=== PATIENT | female | born 1980 | race Caucasian/White ===

== ENCOUNTER 2016-10-06 18:12 | Inpatient (IN) | payer BC ==
--- NOTE | ~2016-10-06 | PA ---
Unit #: [id number] #: [id number] Patient: AFIA PACHECO [id number] [facility] [address] [place] [address] [id number] I MR#: [id number] NAME: AFIA PACHECO. ROOM: P178 Age: 36 Sex: F Admission Date: 10/06/2016 : 1980 Date of Assessment: 10/07/2016 Attending Physician: Esther Ortega M.D. Admitting Physician: Esther Ortega M.D. Primary Care Physician: Irina Dudley M.D. PSYCHIATRIC ASSESSMENT DATE OF SERVICE 10/07/2016. IDENTIFYING DATA Ms. Pacheco is a 36-year-old single white female who is a resident of [place], [place] and was self-referred to the hospital on a voluntary basis. CHIEF COMPLAINT "I have been having urge to use drugs and to hurt myself." HISTORY OF PRESENT ILLNESS Ms. Pacheco is a 36-year-old white female who was brought to the hospital reporting that she still has been having the urge to use the drugs and hurt herself and that she has had urges more and more. 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 She reports that she drank on her job and one day she did not go back on 08/26/2016. She no longer has a job and she lives with her parents and stated that she is scared to lose her parents and does report increasing depression, anxiety, irritability, restlessness, feelings of hopelessness and helplessness, and suicidal ideation. SUBSTANCE ABUSE HISTORY The patient has extensive history of substance abuse and dependence including alcohol, cannabis, cocaine, acid, opioids, and amphetamines, and currently she has been drinking 1-1/2 pint of rum a day and has been smoking 3 blunts of cannabis a day and has been using an 8 ball of crack cocaine a day and has been using and opioids and methamphetamine on regular basis as well. PAST PSYCHIATRIC HISTORY The patient has had history of multiple inpatient and outpatient chemical dependency treatment including being at [facility], [facility], and review of the medical records indicate that she has been diagnosed and treated for bipolar disorder and has been on combination of psychotropic medications including Abilify, Seroquel, Celexa, Lamictal, Wellbutrin, but does not appear to be showing a therapeutic response to medications. PAST MEDICAL HISTORY Unit #: [id number] #: [id number] Patient: AFIA PACHECO Epilepsy. ALLERGIES Dilantin. PERSONAL AND SOCIAL HISTORY A 36-year-old white female who reports that she is single, unemployed, and lives at home with her parents and has fairly decent social support system. MENTAL STATUS EXAMINATION Young white female who was casually dressed with fair personal hygiene, appears to be in no acute distress or discomfort. She was awake and alert on interaction with intact orientation to time, place, and person. Her mood was anxious and depressed with a congruent affect. Her speech was slow and restricted in content. Her thought processes were disorganized with some looseness of associations and flight of ideas. She reports having suicidal ideations, but denies any homicidal ideations, and also denies any auditory or visual hallucinations. Her insight and judgment remain significantly impaired. DIAGNOSTIC IMPRESSION Psychiatric: Alcohol dependence, moderate and acute withdrawals; cannabis dependence, moderate; methamphetamine dependence, moderate; opioid dependence, moderate. Medical: Epilepsy. Stressors: Moderate psychosocial stressors. TREATMENT PLAN 1. The patient has presented with history of substance abuse and mood disorder, and has been decompensating and will need inpatient hospitalization for detoxification, and safety, and stabilization. We will start her on detox protocol. We will closely monitor for any worsening withdrawal symptoms. 2. Supportive therapy was provided to the patient. 3. Safe, structured, and nourishing environment will be provided. ESTIMATED LENGTH OF STAY 4 to 5 days. ABILITY TO HELP SELF Limited. WILLINGNESS TO HELP SELF The patient appears to be willing to help self. STRENGTHS 1. Communicative. 2. Cooperative. PROBLEMS 1. Chronic dysphoric symptoms. 2. Chronic chemical dependency. 3. Poor social support system. DISCHARGE CRITERIA This will be contingent upon the patient's ability to go through detox without having any significant withdrawal symptoms as well as her ability to stay safe to herself, particularly after discharge from the hospital. Unit #: [id number] #: [id number] Patient: AFIA PACHECO Dictated by... Calvin Dupree/tracy TD: 10/07/2016 08:02 JOB #: [id number] PSYCHIATRIC ASSESSMENT X Esther Ortega MD PSYCHIATRIC ASSESSMENT
--- NOTE | ~2016-10-06 | PN ---
Unit #: [id number] #: [id number] Patient: AFIA PACHECO [id number] [facility] [address] [place] [address] [id number] MR#: [id number] NAME: AFIA PACHECO. ROOM: P178 Age: 36 Sex: F Admission Date: 10/06/2016 : 1980 Attending Physician: Esther Ortega M.D. Admitting Physician: Esther Ortega M.D. Primary Care Physician: Calvin Ramirez PROGRESS NOTES DATE 10/08/2016 DISCUSSION Ms. Pacheco is a 36-year-old white female with substance abuse and mood disorder who was seen today and chart was reviewed and case was discussed with the staff. She has been anxious, withdrawn and rather seclusive to herself. Meanwhile, she has been cooperative with treatment recommendations as she has been taking the medications and tolerating them fairly well with no reported side effects. MENTAL STATUS EXAMINATION Young white female who was casually dressed with fair personal hygiene, appears to be in no acute distress or discomfort. She was awake and alert on interaction with intact orientation. Her mood was anxious with congruent affect. She denies any suicidal or homicidal ideations. Her insight and judgement remains slightly impaired. TREATMENT PLAN 1. We will continue her on her current medications and treatment protocol. We will monitor her response to medication and make further adjustments as needed. 2. We will continue to follow up. Dictated by... Calvin Dupree/kristi TD: 10/11/2016 02:19 JOB #: [id number] Unit #: [id number] #: [id number] Patient: AFIA PACHECO PROGRESS NOTES X Esther Ortega MD PROGRESS NOTE
--- NOTE | ~2016-10-06 | TN ---
Unit #: [id number] #: [id number] Patient: AFIA PACHECO [id number] [place] [address] [id number] MR#: [id number] NAME: AFIA PACHECO. ROOM: P178 Age: 36 Sex: F Admission Date: 10/06/2016 : 1980 Discharge Date: 10/10/2016 Attending Physician: Esther Ortega M.D. Primary Care Physician: Irina Dudley M.D. LOC TRANSFER NOTE DATE OF SERVICE: 10/12/2016 HISTORY OF PRESENT ILLNESS Ms. Pacheco is a 36-year-old single white female, who was stepped down to the outpatient treatment program from the inpatient psychiatric unit, where she was hospitalized under my care from 10/06/2016 to 10/10/2016 and was brought to the hospital stating that she has been having urge to use drugs and to hurt herself and that she has urges more and more and that she saw her cigarette staff software engineer and started having a plan to burn herself with a staff software engineer and stated that she came close to hurting herself. As such, she was stabilized on her psychotropic medication as she has history of mood disorder and was medically detoxed from opioids and methamphetamines, particularly opioids as she has been using 0.5 g of heroin a day and was stepped down to the outpatient treatment program. When evaluation by me, the patient was seen to be rather anxious, withdrawn, reports that she still has been having some anxiety and depressive symptoms, but denied any suicidal ideations, intent, or plan. SUBSTANCE ABUSE HISTORY The patient has history of alcohol, cannabis, cocaine, acid, opioids, and methamphetamine abuse and dependence, currently opioids and methamphetamine has been her drug of choice. PAST PSYCHIATRIC HISTORY The patient has had history of psychiatric treatment at [facility], [facility], and [facility] and review of the medical records indicate that she has been diagnosed and treated for bipolar disorder and is currently on a combination of Abilify, Lamictal, and Celexa. PAST MEDICAL HISTORY The patient's medical history is significant for epilepsy. ALLERGIES Phenytoin. PERSONAL AND SOCIAL HISTORY A 36-year-old white female, who reports that she lives at home with her parents and is single, unemployed, and has fairly decent social support system. MENTAL STATUS EXAMINATION Young white female who was casually dressed with fair personal hygiene, Unit #: [id number] #: [id number] Patient: AFIA PACHECO appears to be in no acute distress or discomfort. She was awake and alert on interaction with intact orientation to time, place, and person. Her mood was anxious and depressed with a congruent affect. Her speech was slow and goal directed. She denies any suicidal or homicidal ideations, and also denies any auditory or visual hallucinations. Her insight and judgment remain slightly impaired. DIAGNOSTIC IMPRESSION Psychiatric: Bipolar disorder, most recent episode depressed, recurrent, moderate, without psychotic features; opioid dependence, moderate; methamphetamine dependence, moderate. Medical: Epilepsy. Stressors: Moderate psychosocial stressors. TREATMENT PLAN 1. The patient has presented with history of mood disorder and substance abuse. We will recommend enrolling her into the outpatient treatment program and maintaining her on her current medications. We will monitor her response and make further adjustments as needed. 2. Supportive therapy was provided to the patient. ESTIMATED LENGTH OF STAY 14 to 21 days. ABILITY TO HELP SELF Limited. WILLINGNESS TO HELP SELF The patient appears to be willing to help self. STRENGTHS 1. Communicative. 2. Cooperative. PROBLEMS 1. Chronic dysphoric symptoms. 2. Poor social support system. DISCHARGE CRITERIA This will be contingent upon the patient's ability to show resolution of her depression and anxiety and her ability to stay safe and sober, particularly after discharge from the program. Dictated by... Calvin Dupree/tracy TD: 10/14/2016 01:00 JOB #: [id number] Unit #: [id number] #: [id number] Patient: AFIA PACHECO LOC TRANSFER NOTE X Esther Ortega MD X LOC TRANSFER NOTE
--- NOTE | ~2016-10-06 | DS ---
Unit #: [id number] #: [id number] [facility] [id number] [facility] [address] [place] [address] [id number] MR#: [id number] NAME: AFIA PACHECO. ROOM: 78 Age: 36 Sex: F Admission Date: 10/06/2016 : 1980 Discharge Date: 10/10/2016 Attending Physician: Esther Ortega M.D. Primary Care Physician: Irina Dudley M.D. DISCHARGE SUMMARY IDENTIFYING DATA Ms. Pacheco is a 36-year-old single white female, who is a resident of [place], [place] and was self-referred to the hospital on a voluntary basis. DISCHARGE DIAGNOSES Psychiatric: Alcohol dependence, moderate and acute withdrawals; cannabis dependence, moderate; methamphetamine dependence, moderate; opioid dependence, moderate. Medical: None. Stressors: Moderate psychosocial stressors. HISTORY OF PRESENT ILLNESS Please see initial psychiatric evaluation for details. PAST PSYCHIATRIC HISTORY Please see initial psychiatric evaluation for details. PAST MEDICAL HISTORY Please see initial psychiatric evaluation for details. HOSPITAL COURSE The patient was admitted to the adult chemical dependency unit at [facility] and was oriented to the hospital environment. Routine p.r.n. medications were initiated, and she was started back on her home medications and medications were adjusted and she was closely monitored. She was taking the medications regularly and was tolerating them fairly well and was able to come out of the detox without any complications and was willing to continue treatment on an outpatient basis and as such, it was decided that she will be discharged home and will continue treatment on an outpatient basis. DISCHARGE MEDICATIONS None. DISCHARGE CONDITION Stable. PROGNOSIS Fair. Dictated by... Esther Ortega M.D. Unit #: [id number] #: [id number] Patient: AFIA PACHECO IAA/modl TD: 10/10/2016 06:49 JOB #: [id number] DISCHARGE SUMMARY X Esther Ortega MD X DISCHARGE SUMMARY
--- NOTE | ~2016-10-06 | HP ---
Unit #: [id number] #: [id number] Patient: AFIA PACHECO [id number] [facility] [address] [place] [address] [id number] MR#: [id number] NAME: AFIA PACHECO. ROOM: P178 Age: 36 Sex: F Admission Date: 10/06/2016 : 1980 Attending Physician: Esther Ortega M.D. Admitting Physician: Esther Ortega M.D. Primary Care Physician: Irina Dudley M.D. HISTORY AND PHYSICAL HISTORY OF PRESENT ILLNESS The patient is a 36-year-old female, who has been admitted to [facility] who has an urge to use more drugs and for suicidal ideations. PAST MEDICAL HISTORY 1. Suicidal ideations. 2. Seizures. 3. Polysubstance abuse. PAST SURGICAL HISTORY None. ALLERGIES Dilantin HOME MEDICATIONS 1. Seroquel 50 mg p.o. at night 2. Abilify 5 mg p.o. daily 3. Zonisamide 500 mg daily 4. Celexa 20 mg p.o. at night 5. Lamictal 300 mg in the morning 6. Lamictal 200 mg in the evening 7. Wellbutrin SR 100 mg p.o. in the a.m. 8. Lactulose 10 gram p.o. in the a.m. 9. Cipro 500 mg p.o. times six days 10. Gabapentin 600 mg p.o. b.i.d. SOCIAL HISTORY The patient endorses tobacco, alcohol, and crack cocaine, and amphetamine use. FAMILY HISTORY Medically noncontributory. REVIEW OF SYSTEMS CONSTITUTIONAL: No fever or chills. HEENT: Denies any sore throat, ear pain or runny nose. CARDIOVASCULAR: Denies chest pain, irregular heart rhythm or palpitations. CHEST: Denies shortness of breath or cough. No hemoptysis. GASTROINTESTINAL: Denies nausea, vomiting, diarrhea or chronic constipation. ENDOCRINE: Denies history of increased thirst or urination. No recent Unit #: [id number] #: [id number] Patient: AFIA PACHECO significant weight loss or gain. GENITOURINARY: Denies dysuria, frequency, or hematuria. SKIN: Denies any rashes. HEMATOLOGIC: Denies history of increased bleeding or bruising. MUSCULOSKELETAL: Denies any hot, swollen joints. No generalized muscle pain. NEUROLOGIC: Denies problems with vision or speech. No frequent, severe headaches. No numbness, tingling or weakness in any extremities. Denies loss of bladder or bowel control. PHYSICAL EXAMINATION GENERAL APPEARANCE: The patient is awake, alert, and in no acute distress. VITAL SIGNS: Temperature 98.1, heart rate 98, respirations 20, and blood pressure 152/96. WEIGHT: 230 pounds. HEIGHT: 5 feet 5.5 inches. HEENT: Head: Atraumatic and normocephalic. Pupils are equal, round, and reactive. Extraocular movements are intact. No discharge from ears or nares. NECK: Supple. Trachea is midline. HEART: Regular rate and rhythm. LUNGS: Clear. ABDOMEN: Soft and nontender. Nondistended. : Not done. SKIN: Warm, dry, and no unusual rashes or lesions. EXTREMITIES: No clubbing, edema, or cyanosis. NEUROLOGIC: Within normal limits. Cranial Nerves: II through XII: Intact. No focal deficits. Sensory and Motor Function: Grossly normal. Motor: moves all extremities well. Coordination: Gait is normal. Deep Tendon Reflexes: Intact. IMPRESSION Psychiatric admission. RECOMMENDATIONS Psychiatric, per psychiatrist. MEDICAL I see no contraindications to participating in facility's activities. MEDICAL PROGNOSIS Fair. MEDICAL CONDITION Stable. Dictated by... eBth Cee A.P.R.N. for Calvin Jha Unit #: [id number] #: [id number] Patient: AFIA PACHECO TD: 10/07/2016 06:26 JOB #: [id number] HISTORY AND PHYSICAL X Beth Cee APRN X HISTORY AND PHYSICAL
--- NOTE | ~2016-10-06 | PN ---
Unit #: [id number] #: [id number] Patient: AFIA PACHECO [id number] [facility] [address] [place] [address] [id number] MR#: [id number] NAME: AFIA PACHECO. ROOM: P178 Age: 36 Sex: F Admission Date: 10/06/2016 : 1980 Attending Physician: Esther Ortega M.D. Admitting Physician: Esther Ortega M.D. Primary Care Physician: Calvin Ramirez PROGRESS NOTES DATE OF SERVICE: 10/09/2016 SUBJECTIVE Ms. Pacheco is a 36-year-old white female who was seen today and chart was reviewed, and case was discussed with the staff. She has been anxious, withdrawn, though has not shown any agitation, irritability, and has been cooperative with treatment recommendations and has been taking the medications and tolerating them fairly well with no reported side effects. MENTAL STATUS EXAMINATION Young white female who was casually dressed with fair personal hygiene, appears to be in no acute distress or discomfort. She was awake and alert on interaction with intact orientation. Her mood was anxious with a congruent affect. She denies any suicidal or homicidal ideations. Her insight and judgment remain slightly impaired. TREATMENT PLAN 1. We will continue on her current medications and treatment protocol. We will monitor her response to medications and make further adjustments as needed. 2. We will continue to follow up. Dictated by... Calvin Dupree/tracy TD: 10/11/2016 01:31 JOB #: [id number] [facility] PROGRESS NOTES X Esther Ortega MD PROGRESS NOTE
[~2016-10-06 18:12] MED LIST: AMITRYPTYLINE PO; CALAN40 MG PO; EFFEXOR PO; KLONOPIN PO; LAMICTAL PO; LEXAPRO PO; PRILOSEC; PROZAC; TOPAMAX PO; ZONEGRAN100 MG PO; [UNRECOGNIZED DRUG - OTHER]
[2016-10-07 09:43] LABS: BASOPHIL# 0.1 X10e3 (0-0.3); BASOPHIL% 0.6 % (0-2.5); EOSINOPHIL# 0.5 X10e3 (0-0.7); HEMATOCRIT 43.6 % (35.0-45.0); HEMOGLOBIN 13.9 gm/dL (12.0-16.0); LYMPHOCYTE# 2.6 X10e3 (1.0-3.5); LYMPHOCYTE% 21.5 % (17.0-45.0); MEAN CELL VOLUME 91.2 FL (83-96); MEAN CORPUSCULAR HEMOGLOBIN 29.1 PG (28-34); MEAN CORPUSCULAR HGB CONC 31.9 g/dL (30-36); MONOCYTE# 0.8 X10e3 (0-1.0); MONOCYTE% 6.3 % (3.0-12.0); NEUTROPHIL# 8.1 X10e3 (1.5-7.1); NEUTROPHIL% 67.6 % (40-75); PLATELET COUNT 242 X10e3 (140-420); RED BLOOD COUNT 4.78 X10e (3.90-5.30); RED CELL DISTRIBUTION WIDTH 14.3 % (11.0-15.5)
[2016-10-07 09:47] LABS: DIFF IND NO
[2016-10-07 09:53] LABS: THYROID STIMULATING HORMONE 0.58 uIU/ml (0.34-5.60)
[2016-10-07 09:58] LABS: ALBUMIN SERUM 3.8 g/dL (3.5-5.0); ALKALINE PHOSPHATASE 72 U/L (32-92); ALT (SGPT) 28 U/L (10-40); AST (SGOT) 21 U/L (10-42); BILIRUBIN,TOTAL 0.4 mg/dL (0.2-2.0); BLOOD UREA NITROGEN 7 mg/dL (9-23); CALCIUM SERUM 8.3 mg/dL (8.4-10.2); CARBON DIOXIDE 21 mmol/L (22-31); CHLORIDE 110 mmol/L (100-111); CREATININE SERUM 0.7 mg/dL (0.6-1.4); GLOM FILT RATE Estimated ABOVE60 mL/min (>60); GLUCOSE FASTING 94 mg/dL (70-110); PROTEIN TOTAL SERUM 6.1 g/dL (6.0-8.3); SODIUM 135 mmol/L (135-145)
[2016-10-07 10:00] LABS: FREE THYROXIN (T4) 0.72 ng/dL (0.58-1.64)
[2016-10-07 12:43] LABS: URINE APPEARANCE CLEAR; URINE BILIRUBIN NEG (NEG); URINE BLOOD NEG (NEG); URINE COLOR YELLOW; URINE GLUCOSE NEG (NEG); URINE KETONE NEG (NEG); URINE LEUKOCYTE ESTERASE NEG (NEG); URINE NITRATE NEG (NEG); URINE PROTEIN NEG (NEG); URINE SPECIFIC GRAVITY 1.017 (1.003-1.035); URINE UROBILINOGEN 0.2 MG/DL (NEG)
[2016-10-07 13:47] LABS: AMPHETAMINE NEG (NEG); BARBITURATES NEG (NEG); BENZODIAZEPINES NEG (NEG); COCAINE NEG (NEG); MARIJUANA POS (NEG); OPIATES NEG (NEG); TRICYCLIC ANTIDEPRESSANTS POS (NEG); U METHADONE NEG (NEG)
== END 2016-10-10 09:53 | DRG 897 ==
LOC: P1E 18:12
PROVIDERS: Psychiatry & Neurology Psychiatry
PROC: HZ2ZZZZ Detoxification Services for Substance Abuse Treatment (ICD-10-PCS; principal; 2016-10-06)
DX: F10.239 Alcohol dependence with withdrawal, unspecified (principal); R45.851 Suicidal ideations; E72.04 Cystinosis; F15.20 Other stimulant dependence, uncomplicated; F12.20 Cannabis dependence, uncomplicated; G40.909 Epilepsy, unspecified, not intractable, without status epilepticus; F10.20 Alcohol dependence, uncomplicated
CPT/HCPCS: 80053; 80307; 81003; 84439; 84443; 85025; 86592